=== PATIENT | female | born 2000 | race Caucasian/White ===

== ENCOUNTER 2024-01-25 16:07 | Emergency (ER) | payer OTHER ==
[2024-01-25 16:15] VITALS: BP 124/78; PULSE 79; RESP 18; TEMP 98.5; BMI 22.1
[2024-01-25 18:11] LABS: BASO % 0.4 % (0-2.0); EOS % 0.8 % (0-4.5); HEMATOCRIT 39.5 % (32.4-45.2); HEMOGLOBIN 13.4 GM/dL (10.7-15.3); LYMPH % 34.5 % (8-40); MCH 28.8 pg (25.7-33.7); MEAN CELL VOLUME 84.7 fl (80-96); MEAN PLT VOLUME 7.9 fl (7.5-11.1); MONO % 6.7 % (3.8-10.2); NEUT % 57.6 % (42.8-82.8); PLATELET COUNT 310 10^3/uL (134-434); RBC 4.66 M/mm3 (3.60-5.2); RDW 12.8 % (11.6-15.6); WHITE BLOOD COUNT 6.6 K/mm3 (4.0-10.0)
[2024-01-25 18:15] LABS: HCG,QUALITATIVE URINE Negative
[2024-01-25 18:28] LABS: POTASSIUM 3.8 mmol/L (3.5-5.1)
[2024-01-25 18:29] LABS: CALCIUM 10.1 mg/dL (8.5-10.1)
[2024-01-25 18:30] LABS: ALBUMIN 4.3 g/dl (3.4-5.0); BLOOD UREA NITROGEN 9.8 mg/dL (7-18)
[2024-01-25 18:33] LABS: CREATININE 0.6 mg/dL (0.55-1.3)
[2024-01-25 18:35] LABS: BILIRUBIN,TOTAL 0.5 mg/dL (0.2-1); TOT PROT 8.7 g/dl (6.4-8.2)
[2024-01-25 18:39] LABS: PH,URINE 7.5 (5.0-8.0); URINE APPEARANCE CLEAR; URINE BILIRUBIN NEGATIVE (NEGATIVE); URINE COLOR YELLOW; URINE GLUCOSE (UA) NEGATIVE (NEGATIVE); URINE KETONE NEGATIVE (NEGATIVE); URINE LEUK ESTERASE NEGATIVE (NEGATIVE); URINE NITRITE NEGATIVE (NEGATIVE); URINE PROTEIN NEGATIVE (NEGATIVE); URINE UROBILINOGEN 0.2 mg/dL (0.2-1.0)
== END 2024-01-25 18:50 | disposition home or self-care (01) ==
LOC: JER 16:07
DX: R22.43 Localized swelling, mass and lump, lower limb, bilateral (principal); R20.0 Anesthesia of skin; R51.9 Headache, unspecified; R42 Dizziness and giddiness
CPT/HCPCS: 36415; 80053; 81003; 84703; 85025; 99285-25

== ENCOUNTER 2024-12-29 08:28 | Emergency (ER) | payer OTHER ==
[2024-12-29 09:23] VITALS: RESP 18; TEMP 99; BMI 22.1
[2024-12-29 09:54] LABS: BASO % 0.2 % (0-2.0); HEMATOCRIT 39.7 % (32.4-45.2); HEMOGLOBIN 13.2 GM/dL (10.7-15.3); LYMPH % 24.7 % (8-40); MCH 28.8 pg (25.7-33.7); MCHC 33.3 g/dl (32.0-36.0); MEAN CELL VOLUME 86.6 fl (80-96); MEAN PLT VOLUME 8.1 fl (7.5-11.1); MONO % 16.9 % (3.8-10.2); NEUT % 58.2 % (42.8-82.8); PLATELET COUNT 218 10^3/uL (134-434); RBC 4.58 M/mm3 (3.60-5.2); WHITE BLOOD COUNT 6.7 K/mm3 (4.0-10.0)
[2024-12-29 10:05] LABS: POTASSIUM 3.8 mmol/L (3.5-5.1)
[2024-12-29 10:07] LABS: BLOOD UREA NITROGEN 12.5 mg/dL (7-18)
[2024-12-29 10:08] LABS: ALBUMIN 3.6 g/dl (3.4-5.0)
[2024-12-29 10:11] LABS: CREATININE 0.7 mg/dL (0.55-1.3)
[2024-12-29 10:12] LABS: TOT PROT 7.4 g/dl (6.4-8.2)
[2024-12-29 10:34] LABS: BILIRUBIN,TOTAL 0.3 mg/dL (0.2-1)
[2024-12-29 10:43] LABS: EPI CELLS 15 /uL (0-25.1); HYALINE CASTS 2 /uL (0-3.1); PH,URINE 5.5 (5.0-8.0); URINE APPEARANCE CLEAR; URINE BACTERIA 30 /uL (0-1359); URINE BILIRUBIN NEGATIVE (NEGATIVE); URINE COLOR YELLOW; URINE GLUCOSE (UA) NEGATIVE (NEGATIVE); URINE KETONE NEGATIVE (NEGATIVE); URINE LEUK ESTERASE NEGATIVE (NEGATIVE); URINE NITRITE NEGATIVE (NEGATIVE); URINE PROTEIN NEGATIVE (NEGATIVE); URINE RBC 30 /uL (0-23.9); URINE UROBILINOGEN 0.2 mg/dL (0.2-1.0); URINE WBC 53 /uL (0-25.8)
[2024-12-29 10:58] VITALS: BP 113/70; PULSE 72
== END 2024-12-29 13:51 | disposition home or self-care (01) ==
LOC: JER 08:28
DX: R55 Syncope and collapse (principal); J10.1 Influenza due to other identified influenza virus with other respiratory manifestations; R42 Dizziness and giddiness; Z20.822 Contact with and (suspected) exposure to COVID-19
CPT/HCPCS: 0241U-QW; 36415; 70450-TC; 71045-TC-FY; 80053; 81003; 82962; 83690; 83735; 84443; 84484; 84703; 85025; 87086; 87186; 93005; 93010; 99285-25